=== PATIENT | male | born 1980 | race Caucasian/White ===

== ENCOUNTER 2018-04-18 09:00 | Day surgery (SDC) | payer OTHER ==
[~2018-04-18 09:00] MED LIST: LIDOCAINE 2% (SDV) 5 ML INJ
[2018-04-18] MEDS ORDERED: BUPIVACAINE 0.5% (SDV) 30 ML INJ (10:42)
[2018-04-18 10:45] LABS: ADD MAN DIFF? NO
[2018-04-18 10:48] LABS: WHITE BLOOD COUNT 12.1 10^3/ul (4.8-10.8)
[2018-04-18 10:48] LABS: BASOPHIL # 0.1 10^3/ul (0.0-0.1); BASOPHILS % 0.8 % (0.0-2.0); EOSINOPHILS # 1.1 10^3/ul (0.0-0.5); EOSINOPHILS % 8.8 % (0.0-7.0); HEMOGLOBIN 14.7 g/dl (14.0-18.0); LYMPHOCYTES # 3.1 10^3/ul (0.8-2.9); LYMPHOCYTES % 25.3 % (15.0-51.0); MEAN CORPUSCULAR HEMOGLOBIN 28.8 pg (29.0-33.0); MEAN CORPUSCULAR HGB CONC 34.2 g/dl (32.0-37.0); MEAN CORPUSCULAR VOLUME 84.3 fl (82.0-101.0); MEAN PLATELET VOLUME 9.7 fl (7.4-10.4); MONOCYTE # 0.9 10^3/ul (0.3-0.9); MONOCYTES % 7.8 % (0.0-11.0); NEUTROPHIL # 6.9 10^3/ul (1.6-7.5); NEUTROPHILS % 56.9 % (39.0-77.0); PLATELET COUNT 357 10^3/UL (140-415); RED CELL DISTRIBUTION WIDTH 12.9 % (11.5-14.5)
[2018-04-18 10:58] LABS: HOLD TRANSMISSIONS 1
[2018-04-18] MEDS ORDERED: PROPOFOL 20 ML (11:11)
[2018-04-18] MEDS ORDERED: ROCURONIUM 50 MG INJ (11:13)
[2018-04-18] MEDS ORDERED: FENTAnyl 50 MCG/ML VIAL (11:13)
[2018-04-18] MEDS ORDERED: HYDROmorphONE 2 MG/ML SYG (11:15)
[2018-04-18] MEDS ORDERED: LABETALOL HCL 20MG INJ (11:52)
[2018-04-18] MEDS ORDERED: DEXAMETHASONE 4 MG/ML 1 ML INJ (11:53)
[2018-04-18] MEDS ORDERED: ONDANSETRON 4 MG INJ (11:53)
[2018-04-18] MEDS: LIDOCAINE 1%/EPI 30 ML INJ (12:15)
[2018-04-18] MEDS: POLYMYXIN/BACITRACIN 1L IRRIG (12:15)
[2018-04-18] MEDS: GELATIN SIZE 100 SPONGE (12:15)
[2018-04-18] MEDS: THROMBIN 5000 UNIT VIAL (12:15)
[2018-04-18] MEDS: METHYLPREDNISOLONE ACET 80 MG/ML 1 ML (13:42)
[2018-04-18] MEDS ORDERED: SUGAMMADEX SODIUM 200 MG/2 ML VIAL IV (13:50)
[2018-04-18] MEDS ORDERED: MIDAZOLAM 1 MG/ML 2 ML INJ IV (14:30)
[2018-04-18] MEDS ORDERED: DIPHENHYDRAMINE 50 MG INJ IV (14:30)
[2018-04-18] MEDS ORDERED: KETOROLAC 30 MG INJ IV (14:30)
[2018-04-18] MEDS ORDERED: FENTAnyl 50 MCG/ML VIAL IV ×2 (14:30)
[2018-04-18] MEDS ORDERED: hydrALAzine 20 MG INJ IV (14:30)
[2018-04-18] MEDS ORDERED: OXYCODONE/ACETAMINOPHEN (5/325) TAB PO ×2 (14:30)
[2018-04-18] MEDS ORDERED: METOCLOPRAMIDE 10 MG INJ IV (14:30)
[2018-04-18] MEDS ORDERED: LABETALOL HCL 20MG INJ IV (14:30)
[2018-04-18] MEDS ORDERED: HYDROmorphONE 1 MG/5 ML IV SYRINGE IV ×3 (14:30)
[2018-04-18] MEDS ORDERED: ALBUTEROL 0.083% (NEB) 2.5 MG/3 ML AMP HHN (14:30)
[2018-04-18] MEDS: INSULIN ASPART [NOVOLOG] 3 ML PEN SC (14:33)
[2018-04-18] MEDS: ONDANSETRON 4 MG INJ IV (14:43)
[2018-04-18] MEDS: FENTAnyl 50 MCG/ML VIAL IV ×2 (14:43→14:51)
[2018-04-18] MEDS: MEPERIDINE 25 MG INJ IV (14:45)
[2018-04-18] MEDS: EPHEDrine SULFATE 50 MG/5 ML SYG IV (15:30)
== END 2018-04-18 16:40 | disposition home or self-care (01) ==
LOC: REC 09:08 → SDS 09:00
DX: M51.26 Other intervertebral disc displacement, lumbar region (principal); M54.16 Radiculopathy, lumbar region; I10 Essential (primary) hypertension; E11.9 Type 2 diabetes mellitus without complications
CPT/HCPCS: 63047; 72110; 82962; 85025; 86850; 86900; 86901